=== PATIENT | female | born 1965 | race African-American/Black ===

== ENCOUNTER 2018-08-13 07:30 | Day surgery (SDC) | payer OTHER | END 2018-08-13 16:15 | disposition home or self-care (01) | LOC: AMB-ENDOS 07:30 | DX: D12.3 Benign neoplasm of transverse colon (principal); K62.82 Dysplasia of anus ==

== ENCOUNTER 2018-10-30 11:00 | Inpatient (IN) | payer OTHER ==
[~2018-10-30] VITALS: Ht 152.4 cm; Wt 63.5 kg
[2018-10-30] MEDS ORDERED: OMEPRAZOLE20 M1 PO (12:52)
[2018-10-30] MEDS ORDERED: VASOTEC5 MG PO (12:53)
[2018-10-30] MEDS ORDERED: RANITIDINE HCL300 MG PO (12:53)
[2018-11-07] MEDS ORDERED: INTESTINEX680 M1 PO (13:00)
[2018-11-07] MEDS ORDERED: OXYC1TAB9 PO (13:00)
== END 2018-11-07 13:46 | disposition home or self-care (01) | DRG 334 ==
LOC: O/R 11-04 09:10 → SURG 11-04 09:10 → SURH 11-04 11:00 → SURG 11-04 19:56
PROVIDERS: Obstetrics & Gynecology Gynecology; ADMIT Surgery
PROC: 0UT64ZZ Resection of Left Fallopian Tube, Percutaneous Endoscopic Approach (ICD-10-PCS; 2018-11-04)
PROC: 0UT14ZZ Resection of Left Ovary, Percutaneous Endoscopic Approach (ICD-10-PCS; 2018-11-04)
PROC: 0DTP4ZZ Resection of Rectum, Percutaneous Endoscopic Approach (ICD-10-PCS; principal; 2018-11-04 12:15)
PROC: 07TC4ZZ Resection of Pelvis Lymphatic, Percutaneous Endoscopic Approach (ICD-10-PCS; 2018-11-04 12:15)
DX: C20 Malignant neoplasm of rectum (principal); R19.5 Other fecal abnormalities; R19.4 Change in bowel habit; R59.0 Localized enlarged lymph nodes; N80.1 Endometriosis of ovary; I11.9 Hypertensive heart disease without heart failure; D12.3 Benign neoplasm of transverse colon

== ENCOUNTER 2019-11-18 09:26 | Day surgery (SDC) | payer OTHER ==
[~2019-11-18 09:26] MED LIST: INTESTINEX680 M1 PO; OMEPRAZOLE20 M1 PO; OXYC1TAB9 PO; RANITIDINE HCL300 MG PO; VASOTEC5 MG PO
== END 2019-11-18 14:25 | disposition home or self-care (01) ==
LOC: AMB-ENDOS 09:26 → ADM 13:15 → AMB-ENDOS 13:15
PROVIDERS: ATTEND Surgery
DX: K62.89 Other specified diseases of anus and rectum (principal); Z93.3 Colostomy status; Z20.828 Contact with and (suspected) exposure to other viral communicable diseases